=== PATIENT | female | born 1985 | race Caucasian/White ===

== ENCOUNTER 2024-12-22 00:23 | Emergency (ER) | payer SELFPAY ==
[2024-12-22 00:24] VITALS: BP 136/66; PULSE 60; RESP 20; TEMP 36.8; O2SAT 99; BMI 25.0
--- OUTSIDE RECORDS SUMMARY | 2024-12-22 00:31 | XMS_ITS | Clinical Summary ---
Author Organization [employer] Address [address] [facility] Attn: Epic Prelude ADT LUPE ALBERTO [id number] Care Team Providers Care Bill Distributor Name Role Phone Napoleon Lux MD Primary Care Provider [phone] Allergies No known active allergies Medications diazePAM (VALIUM) 5 mg tabletIndication s:Anxiety with flying Take 1 Tablet (5 mg) by mouth every 6 hours as needed for Anxiety. 10 Tablet 5 Active albuterol-budeso nide (Airsupra) 90-80 mcg/actuation HFA Aerosol InhalerIndicatio ns:Mild intermittent asthma without complication Take 90 mcg by inhalation every 4 hours as needed for Other (See Comment). 5.9 Gram 1 5 Active fluconazole (DIFLUCAN) 150 mg tabletIndication s:Antibiotic-ind uced yeast infection Take 1 Tablet (150 mg) by mouth daily. 2 Tablet 5 Active ondansetron (ZOFRAN ODT) 4 mg Tablet, Rapid Dissolve Take 1 Tablet (4 mg) by mouth every 8 hours as needed for Nausea/Emesis. Dissolve tablet on top of tongue, then swallow with saliva. 60 Tablet 1 5 Active metoprolol tartrate (LOPRESSOR) 50 mg tabletIndication s:Tachycardia Take 1 Tablet (50 mg) by mouth 3 times daily. 270 Tablet 1 5 Active DULoxetine (CYMBALTA) 30 mg Capsule, Delayed Release(E.C.)Ind ications:BRUCE (generalized anxiety disorder) Take 1 Capsule (30 mg) by mouth daily. 90 Capsule 1 5 Active metoprolol tartrate (LOPRESSOR) 50 mg tabletIndication s:Tachycardia Take 1 Tablet (50 mg) by mouth 3 times daily. 270 Tablet 1 5 025 Discontin ued(Reord er) DULoxetine (CYMBALTA) 30 mg Capsule, Delayed Release(E.C.)Ind ications:BRUCE (generalized anxiety disorder) Take 1 Capsule (30 mg) by mouth daily. 90 Capsule 1 5 025 Discontin ued(Reord er) Active Problems Problem Noted Date Diagnosed Date Acquired absence of both cervix and uterus 02/20 Encounters Date Type Department Care Team Description 12/03/2024 External Device Data [facility] ABSTRACTION Provider, Abstract 11/27/[address] [phone] Napoleon Lux MD Tachycardia; BRUCE (generalized anxiety disorder) 10/22/2024 Orders Only [address] [phone] Antionette Garza MD 10/21/2024 Orders Only [address] [phone] Mercedes Castro LPN Screening for tuberculosis; Screening for thyroid disorder; Screening for deficiency anemia 10/21/2024 Orders Only [address] [phone] Antionette Garza MD Screening for deficiency anemia (Primary Dx); Screening for thyroid disorder; Screening for tuberculosis 10/01/2024 External Device Data [facility] ABSTRACTION Provider, Abstract 10/01/2024 External Device Data [facility]STRA[facility] Provider, Abstract from Last 3 Months Immunizations Immunization Administration Dates Next Due Influenza Seasonal Unspecified Formulation IM ,11/13/2018 Family History Medical History Relation Name Comments Diabetes Maternal Grandmother No Known Problems Sister 1 No Known Problems Sister 2 Relation Name Status Comments Father Alive Maternal Grandmother Alive Mother Alive Sister 1 Alive Sister 2 Alive Social History Tobacco Use Types Packs/Day Years Used Date Smoking Tobacco: Former Cigarettes Smokeless Tobacco: Never Tobacco Cessation:Counseling Given: Not Answered Alcohol Use Standard Drinks/Week Comments Yes 0 (1 standard drink = 0.6 oz pur e alcohol) Comments No Sex and Gender Information Value Date Recorded Sex Assigned at Not on file Legal Sex Female 2:33 AM FINE HAIRER Gender Identity Not on file Sexual Orientation Not on file Last Filed Vital Signs Vital Sign Reading Time Taken Comments Blood Pressure 144/84 05/22/2023 8:35 AM CDT Pulse 69 05/22/2023 8:35 AM CDT Temperature 36.3 C (97.4 F) 02/20/2023 11:54 AM FINE HAIRER Respiratory Rate 17 02/20/2023 11:54 AM FINE HAIRER Oxygen Saturation 100% 02/20/2023 11:54 AM FINE HAIRER Inhaled Oxygen Concentration - - Weight 69.6 kg (153 lb 6.4 oz) 05/22/2023 8:35 A M CDT Height 165.1 cm (5' 5 ) 05/22/2023 8:35 AM CDT Body Mass Index 25.53 05/22/2023 8:35 AM CDT Plan of Treatment Health Maintenance Due Date Last Done Comments DTAP/TDAP/TD VACCINES (5 - Tdap) 10/27/2001 10/26/2001, 10/10/1991, 05/11/1989, Additional history exists HPV VACCINES (1 - 3-dose SCD M series) 2013 Preventative Visit- Commercial 02/14/2024 INFLUENZA VACCINE (#1) 2024 12/14/2022, 2018 HEPATITIS B VACCINES Completed 03/10/1999, 09/24/1998, 08/20/1998 Procedures Procedure Name Priority Date/Time Associated Diagnosis Comments CBC WITH DIFFERENTIAL Routine 10/21/2024 1:05 PM CDT Screening for deficiency anemia COMPREHENSIVE METABOLIC PANEL Routine 10/21/2024 1:05 PM CDT Screening for thyroid disorder TSH REFLEXIVE Routine 10/21/2024 1:05 PM CDT Screening for thyroid disorder QUANTIFERON TB GOLD Routine 10/21/2024 1 :05 PM CDT Screening for tuberculosis from Last 3 Months Results * QUANTIFERON TB GOLD (10/21/2024 1:05 PM CDT) Pathologist [facility] QUANTIFERON TB GOLD PLUS NEGATIVE NEGATIVE [facility] Comment: Negative test result. M. tuberculosis complex infection unlikely. NIL 0.01 IU/mL [facility] MITOGEN-NIL 9.50 IU/mL [facility] TB1 AG - NIL 0.01 IU/mL [facility] TB2 AG - NIL 0.01 IU/mL [facility] Comment: The Nil tube value reflects the background interferon gamma immune response of the patient's blood sample. This value has been subtracted from the patient's displayed TB and Mitogen results. Lower than expected results with the Mitogen tube prevent false-negative Quantiferon readings by detecting a patient with a potential immune suppressive condition and/or suboptimal pre-analytical specimen handling. The TB1 Antigen tube is coated with the M. tuberculosis-specific antigens designed to elicit responses from TB antigen primed CD4+ helper T-lymphocytes. The TB2 Antigen tube is coated with the M. tuberculosis-specific antigens designed to elicit responses from TB antigen primed CD4+ helper and CD8+ cytotoxic T-lymphocytes. For additional information, please refer to https://education.PixelSteam/faq/FFQ534 (This link is being provided for informational/ educational purposes only.) Test Performed at: [facility] [address] [place] [address] Ashli Ramirez MD Blood 10/21/2024 1:05 PM CDT 10/22/2024 3:31 AM CDT us Antionette Garza MD CHEMISTRY ORDERABLES Final Result [facility] [phone] [phone] * TSH REFLEXIVE (10/21/2024 1:05 PM CDT) Pathologist [facility] TSH 0.97 mIU/L [facility] Comment: Reference Range > or = 20 Years 0.40-4.50 Ranges First trimester 0.26-2.66 Second trimester 0.55-2.73 Third trimester 0.43-2.91 Test Performed at: [facility] [address] [place] [address] Ashli Ramirez MD Blood 10/21/2024 1:05 PM CDT 10/22/2024 3:31 AM CDT us Antionette Garza MD CHEMISTRY ORDERABLES Final Result [facility] [phone] [facility] [address] [place] [address] * (ABNORMAL) CBC WITH DIFFERENTIAL (10/21/2024 1:05 PM CDT) WBC 6.7 3.8 - 10.8 Thousand/u L [facility] RBC 4.30 3.80 - 5.10 Million/uL [facility] HEMOGLOBIN 14.3 11.7 - 15.5 g/dL [facility] HEMATOCRIT 42.4 35.0 - 45.0 % [facility] MCV 98.6 80.0 - 100.0 fL [facility] MCH 33.3(H) 27.0 - 33.0 pg [facility] MCHC 33.7 32.0 - 36.0 g/dL [facility] Comment: For adults, a slight decrease in the calculated MCHC value (in the range of 30 to 32 g/dL) is most likely not clinically significant; however, it should be interpreted with caution in correlation with other red cell parameters and the patient's clinical condition. RDW 12.8 11.0 - 15.0 % [facility] PLATELETS 281 140 - 400 Thousand/u L [facility] MPV 9.4 7.5 - 12.5 fL [facility] NEUTROPHIL ABSOLUTE 3,283 1,500 - 7,800 cells/uL [facility] LYMPHOCYTE ABSOLUTE 2,466 850 - 3,900 cells/uL [facility] MONOCYTE ABSOLUTE 583 200 - 950 cells/uL [facility] EOSINOPHIL ABSOLUTE 315 15 - 500 cells/uL [facility] BASOPHILS ABSOLUTE 54 0 - 200 cells/uL [facility] NEUTROPHIL 49 % [facility] LYMPHOCYTES 36.8 % [facility] MONOCYTE 8.7 % [facility] EOSINOPHILS 4.7 % [facility] BASOPHILS 0.8 % [facility] Comment: Test Performed at: [facility] [address] [place] [address] Ashli Ramirez MD Blood 10/21/2024 1:05 PM CDT 10/22/2024 3:31 AM CDT us Antionette Garza MD HEMATOLOGY ORDERABLES Suad l Result [facility] [phone] [facility] [address] [place] [address] * (ABNORMAL) COMPREHENSIVE METABOLIC PANEL (10/21/2024 1:05 PM CDT) GLUCOSE 147(H) 65 - 99 mg/dL [facility] Comment: Fasting reference interval For someone without known diabetes, a glucose value >125 mg/dL indicates that they may have diabetes and this should be confirmed with a follow-up test. BUN 6(L) 7 - 25 mg/dL [facility] CREATININE 0.56 0.50 - 0.97 mg/dL [facility] GFR 120 > OR = 60 mL/min/1.7 3m2 [facility] BUN/CREAT RATIO 11 6 - 22 (calc) [facility] SODIUM 137 135 - 146 mmol/L [facility] POTASSIUM 3.7 3.5 - 5.3 mmol/L [facility] CHLORIDE 101 98 - 110 mmol/L [facility] CO2 29 20 - 32 mmol/L [facility] CALCIUM 9.5 8.6 - 10.2 mg/dL [facility] TOTAL PROTEIN 7.5 6.1 - 8.1 g/dL [facility] ALBUMIN 4.6 3.6 - 5.1 g/dL [facility] GLOBULIN 2.9 1.9 - 3.7 g/dL (calc) [facility] ALBUMIN/GLOBULIN RATIO 1.6 1.0 - 2.5 (calc) [facility] BILIRUBIN TOTAL 0.5 0.2 - 1.2 mg/dL [facility] ALKALINE PHOSPHATASE 45 31 - 125 U/L [facility] AST 31(H) 10 - 30 U/L [facility] ALT 30(H) 6 - 29 U/L [facility] Comment: Test Performed at: [facility] [address] [place] [address] Ashli Ramirez MD Blood 10/21/2024 1:05 PM CDT 10/22/2024 3:31 AM CDT us Antionette Garza MD CHEMISTRY ORDERABLES Final Result [facility] [phone] [facility] [address] [place] [address] from Last 3 Months Insurance [employer] Care Teams Bill Distributor Relationship Specialty Start Date End Date Napoleon Lux MD [address] [place] [phone] PCP - General Family Practice 02/22/23
--- OUTSIDE RECORDS SUMMARY | 2024-12-22 00:32 | XMS_ITS | Patient Health Record ---
Author Organization [facility] Address [address] [place] [address] Care Team Providers Care Development Geologist Name Role Phone Alan Jordan Primary Care Provider Jonnie Emmanuel Unavailable [phone] Haider OLEA, Carolee Unavailable Unavailable Allergies No Known Allergies Reason For Referral No Information Medications Medication SIG (Take, Route, Fr equency, Duration) Notes Start Date End Date Status Metoprolol Tartrate Active Cymbalta Active Social History Tobacco Use: Social History Observation Description Date Details (start date - stop date) Former Smoker NA - NA Social History Drugs/Alcohol: Social Info Question Answer Notes Alcohol Screen (Audit-C) Did you have a drink containing alcohol in the past year? Yes How many drinks did you have on a typical day when you were drinking in the past year? 3 or 4 drinks (1 point) Points 1 Interpretation Negative Drugs Have you used drugs other than those for medical reasons in the past 12 months? No Tobacco Use: Social Info Question Answer Notes xTobacco Use/Smoking Are you a former smoker How long has it been since you last smoked? 5-10 years Problems Problem Type SNOMED Code ICD Code Onset Dates Problem Status W/U Status Risk Notes Problem Former smoker (8439740) Former smoker (Z87.891) Active confirmed Problem Atrial fibrillation (42263679) Atrial fibrillation (I48.91) Active confirmed Problem Menorrhagia (698923160) Menorrhagia (N92.0) Active confirmed Problem Dysmenorrhea (563563620) Dysmenorrhea (N94.6) Active confirmed Problem Obesity (718906415) Obesity (E66.9) Active conf irmed Problem Excessive and frequent menstruation (162044367) Menorrhagia with regular cycle (N92.0) Active confirmed Problem Menometrorrhagia (412639286) Menometrorrhagia (N92.1) Active confirmed Problem Body mass index 30.00 to 34.99 (301312187246481) BMI 31.0-31.9,adult (Z68.31) Active confirmed Problem Body mass index 30+ - obesity (151886600) BMI 30.0-30.9,adult (Z68.30) Active confirmed Problem Adenomyosis of uterus (disorder) (857454852) Adenomyosis (N80.0) Active confirmed Plan Of Treatment No Information Insurance Providers Payer Name Payer Address Payer Phone Subscriber Number Group Number Insured Name Patient Relationship to Insured Coverage Start Date Coverage End Date [employer] [address] [place] [address] [id number] LUIS M ALMENDAREZ Self - patient is the insured [facility] Medicaid Replacement [address] [facility] [phone] [id number] LUIS M ALMENDAREZ Self - patient is the insured Medical (General) History Medical History History ICD Code Bladder infections infectious mono Surgical History Surgery Date(Month/Year) tonsilectomy breast augmentation tubal ligation [facility]H+BS 04/2021 Hospitalization History Reason Date(Month/Year) see above
== END 2024-12-22 01:31 | disposition left against medical advice (07) ==
LOC: ER 00:29
PROVIDERS: Emergency Provider Emergency Medicine; PCP Family Medicine
DX: Z53.21 Procedure and treatment not carried out due to patient leaving prior to being seen by health care provider (principal)